=== PATIENT | male | born 1970 | race Caucasian/White ===

== ENCOUNTER 2019-09-16 05:47 | Inpatient (IN) | payer BC ==
[~2019-09-16] VITALS: Ht 182.9 cm; Wt 86.2 kg
--- NOTE | 2019-09-16 11:10 | NUR ---
pt arrived to room 107 at 1100 with . alert and oriented. slurred speech noticeable. bedside swallow eval to be done by 1115 by this RN. unsteady gait. in bathroom to urinate at this time.
--- NOTE | 2019-09-16 12:03 | EKG ---
[facility] [address] [facility] [place], [place] [address] Signed Sinus tachycardia Possible Left atrial enlargement Right bundle branch block Abnormal ECG No previous ECGs available Confirmed by LAI CONROY DO ([id number]) on 09/16/2019 12:03:12 PM Electronically Signed By: LAI CONROY DO 09/16/19 1203 PATIENT NAME: SUMEET AYERS Electrocardiogram DATE OF : 68 PHYSICIAN: LAI CONROY DO REPORT #: [id number] REPORT IS CONFIDENTIAL AND NOT TO BE RELEASED WITHOUT AUTHORIZATION
[2019-09-16] MEDS ORDERED: TUMS200 MG PO (12:29)
--- NOTE | 2019-09-16 12:29 | NUR ---
MED REC COMPLETE
--- NOTE | 2019-09-16 14:06 | NUR ---
COMPLETED HOURLY ROUNDING ON PATIENT. AT BEDSIDE. WONDERED ABOUT WHEN HOSPITALIST WOULD ROUND AGAIN. HAD WORK RELEASE FORMS NEEDED TO BE FILLED OUT BY HOSPITALIST. GAVE PAPERWORK TO HOSPITALIST.
--- NOTE | 2019-09-16 14:14 | NUR ---
AMBULATING IN HALLS WITH PHYSICAL THERAPY AT THIS TIME.
--- NOTE | 2019-09-16 17:53 | NUR ---
ED ADMIT TODAY. NEW RIGHT SIDED WEAKNESS AND SLURRED SPEECH. TELE 2. ECHOCARDIOGRAM TODAY. SALINE LOCKED. STANDBY ASSIST TO BATHROOM. PT/OT/ST. BEDSIDE SWALLOW EVAL PASSED, BUT DID ASPIRATE WATER SLIGHTLY WHEN CHIN NOT TUCKED. WATCH CLOSELY AND FLEECER WITH SWALLOW PERCAUTIONS. , BARBARA, LIKELY STAYING THE NIGHT.
--- NOTE | 2019-09-16 18:13 | NUR ---
PATIENT IN BED WATCHING TV. FRESH WATER GIVEN. CALL LIGHT IN REACH. NO FURTHER NEEDS AT THIS TIME.
--- NOTE | 2019-09-16 19:05 | NUR ---
REPORT RECEIVED FROM GARCIA GILL. pt RESTING IN BED WITH EYES CLOSED. BREATHING UNLABORED. HR 70 ON TELE 2.
--- NOTE | 2019-09-16 19:48 | NUR ---
Patient is walking in the [address] with Family
--- NOTE | 2019-09-16 20:09 | NUR ---
Yohana walked one lap in med/surg with assisstance from his , i accompanied them on there walk.
--- NOTE | 2019-09-16 20:10 | NUR ---
ROUNDED CHARGE. PATIENT IS UP AMBULATING IN THE HALLWWAY. NO NEEDS NOTED. CALL LIGHT IN REACH.
--- NOTE | 2019-09-16 20:11 | NUR ---
CALL LIGHT ANSWERED. pt C/O FEELING ANXIOUS "CAN'T SIT STILL". AMBULATING IN HALLWAY SBA, MAREN CHRISTINE, GAIT UNSTEADY. NIO NICOTINE MEDICATIONS ORDERED. pt EDUCATION PROVIDED.
--- NOTE | 2019-09-16 21:16 | NUR ---
pt ASSESSMENT COMPLETE. pt EDUCATION PROVIDED REGARDING STROKE. QUESTIONS ANSWERED. DISCUSSED THAT MD WILL ROUND IN MORNING AND WILL GIVE RESULTS FROM CT. NICOTINE PATCH AND LOSANGE ADMINISTERED. pt APPEARS RELAXED. NEURO CHECK COMPLETE. GENERALIZED WEAKNESS, RIGHT FACIAL DROOP, SLURRED SPEECH NOTED. pt DENIES ADDITIONAL NEEDS.
--- NOTE | 2019-09-16 21:40 | NUR ---
MD IN pt ROOM PROVIDED pt EDUCATION TO AND pt REGARDING CT RESULTS, PLAN OF CARE. QUESTIONS ANSWERED. pt RESTING IN BED.
--- NOTE | 2019-09-16 22:24 | NUR ---
PATIENT GIVEN PRN LOZENGE PER ORDER. PATIENT IS UP AMBULATING IN HALLWAY AT THIS TIME. WITH .
--- NOTE | 2019-09-16 23:33 | NUR ---
CHECKED ON pt. RESTING IN BED WITH EYES CLOSED. BREATHING UNLABORED. HR 72 ON TELE 2.
--- NOTE | 2019-09-17 01:58 | NUR ---
CALL LIGHT ANSWERED. SBA TO RESTROOM. GAIT UNSTEADY. ASSESSMENT COMPLETE. NEURO CHECK UNCHANGED, GENERALIZED WEAKNESS THROUGHOUT. VSS. CALL LIGHT IN REACH. LIGHTS OFF IN ROOM.
--- NOTE | 2019-09-17 04:43 | NUR ---
pt RESTING IN BED WITH EYES CLOSED. BREATHING EQUAL AND UNLABORED. HR 88 ON TELE 2.
--- NOTE | 2019-09-17 05:27 | NUR ---
pt RESTED WELL THIS SHIFT. NEURO CHECK UNCHANGED, WEAKNESS BILATERALLY, RIGHT SIDE FACIAL DROOP, SLURRED SPEECH. TELE 2. AMBUATING IN HALLWAY SBA. NIO NICOTINE PATCH PLACED. USING CALL LIGHT APPROPRIATELY.
--- NOTE | 2019-09-17 06:42 | NUR ---
PRN NICOTINE LOSANGE PROVIDED. pt RESTING IN BED. VSS. NEURO CHECK UNCHANGED. DENIES TOILETING NEEDS. COFFEE PROVIDED. CALL LIGHT IN REACH. IN ROOM.
--- NOTE | 2019-09-17 07:40 | NUR ---
PT REQUESTED TO GO FOR A WALK. AMB HALLWAY WITH SBA FROM , APPEARS TO BE SULLY WELL.
--- NOTE | 2019-09-17 07:45 | NUR ---
Spoke with Ras and his , Jess. Pt is anxious to go home. Speach is slurred and facial droop noticable. Updated Dr. Herrera will see him today. Pt works in [employer] at [employer]. LIves in an upstairs apartment, with 16 steps to entry. Pt. interested in OP therapy. Not sure if he would go to an IP therapy, which is more than likely not an option as he seems to have full strength in his legs.
--- NOTE | 2019-09-17 08:30 | NUR ---
Pt discussed in AM huddle with Dr. Herrera. May dc to home today with . Pt does not have a PCP. I spoke with and she would like Dr. Gresham or Dr. Gil. I called the office and they requested a face sheet, face sheet faxed.
--- NOTE | 2019-09-17 08:54 | NUR ---
PT SITTING UP RECLINER, AT BEDSIDE. PT REPORTS HE ATE BREAKFAST AND SULLY WELL. DENIES PAIN. NEURO ASSESSMENT COMPLETED. RIGHT COVER REMOVER AND STRENGTH SLIGHTLY WEAKER THAN LEFT BUT PT OVERALL FAIRLY STRONG. RIGHT FACIAL DROOP NOTED. SLURRED SPEECH BUT COMPREHENSIBLE. ALERT AND ORIENTED TO ALL. MEDICATED WITH NICOTINE LOZENGE PER PT REQUEST. TELE [address], SR. SPEECH THERAPIST IN AT THIS TIME. CALL LIGHT WITHIN REACH.
--- NOTE | 2019-09-17 10:49 | NUR ---
PATIENT SITTING IN CHAIR. FRESH WATER GIVEN. CALL LIGHT IN REACH. NO FURTHER NEEDS AT THIS TIME.
--- NOTE | 2019-09-17 11:20 | NUR ---
PT SITTING UP IN RECLINER VISITING WITH . NEURO ASSESSMENT UNCHANGED. PT AND DENY NEEDS OR CONCERNS AT THIS TIME. CALL LIGHT WITHIN REACH.
--- NOTE | 2019-09-17 12:55 | NUR ---
DISCUSSED WITH PT HIS DIAGNOSIS, PT STATES HE KNOWS HE HAD A STROKE AND HE IS NOT SURE WHAT TYPE OF STROKE HE HAD. WE DISCUSSED THE LENGTHS OF TIME IT MAY TAKE TO RECUPERATE STATING THAT IT IT VARIES ON HOW LONG IT TAKES TO RECUPERATE. PT STATES UNDERSTANDING OF THIS. PT ALSO WANTING TO GET BACK TO WORK AND EXPLAINED TO HIM THAT IT IS GOING TO BE A LITTLE BIT BEFORE HE WILL BE ABLE TO RETURN TO WORK. HE STATED UNDERSTANDING OF THIS, BUT WOULD STILL LIKE TO GO HOME. I VOICED A CONCERN FOR HIM TO DR CONROY REGARDING PT SAFELY GOING HOME.
--- NOTE | 2019-09-17 13:55 | NUR ---
PT SITTING UP IN RECLINER APPEARS TO BE SLEEPING. EYES CLOSED, RESP EVEN AND UNLABORED. AND VISITOR AT BEDSIDE. CALL LIGHT WITHIN REACH.
--- NOTE | 2019-09-17 14:12 | NUR ---
PT AMB HALLWAY WITH , APPEARS TO BE SULLY WELL.
--- NOTE | 2019-09-17 14:41 | NUR ---
PATIENT IN BED WATCHING TV, FAMILY AND DOCTOR IN ROOM. CALL LIGHT IN REACH. NO FURTHER NEEDS AT THIS TIME.
--- NOTE | 2019-09-17 15:09 | NUR ---
Chart sent to OP therapy. Face sheet, order, ER note, H&P, PT/OT/ST evals and notes.
[2019-09-17] MEDS ORDERED: NICORETTE4 M2 BUCCAL (15:11)
[2019-09-17] MEDS ORDERED: NICOTINE PATCH1 EAC1 TD (15:11)
[2019-09-17] MEDS ORDERED: LIPITOR80 MG PO (15:11)
[2019-09-17] MEDS ORDERED: LISINOPRIL10 MG PO (15:12)
[2019-09-17] MEDS ORDERED: ASPIRIN81 MG PO (15:12)
== END 2019-09-17 15:53 | disposition home or self-care (01) | DRG 65 ==
LOC: ED 05:47 → MS 05:49
PROVIDERS: ADMIT Student in an Organized Health Care Education/Training Program
DX: I63.9 Cerebral infarction, unspecified (principal); G81.91 Hemiplegia, unspecified affecting right dominant side; R29.810 Facial weakness; R47.01 Aphasia; R29.700 NIHSS score 0; R47.81 Slurred speech; E78.5 Hyperlipidemia, unspecified; I10 Essential (primary) hypertension; F17.200 Nicotine dependence, unspecified, uncomplicated
CPT/HCPCS: 36415; 70450; 70496; 70498; 71045; 80048; 80053; 80061; 83036; 83735; 84484; 85025; 85610; 85730; 92522; 92610; 93005; 93010; 93306; 97112; 97161; 97166; 99285-25; 99406; Q9967

== ENCOUNTER 2023-02-23 06:29 | Day surgery (SDC) | payer BC ==
[~2023-02-23] VITALS: Ht 182.9 cm; Wt 86.0 kg
[~2023-02-23 06:29] MED LIST: ALLERGY RELIEF10 M1 PO; ASPIRIN81 MG PO; LIPITOR80 MG PO; LISINOPRIL10 MG PO; NICORETTE4 M2 BUCCAL; NICOTINE PATCH1 EAC1 TD; PEPCID20 MG PO; TUMS200 MG PO
[2023-02-23 06:46] VITALS: BP 127/88
[2023-02-23] MEDS ORDERED: OMEPRAZOLE20 MG PO (06:48)
--- NOTE | 2023-02-23 08:18 | NUR ---
02/23/23 0818 Corie Robertson PT TO PACU SLEEPING. DOES NOT RESPOND TO VERBAL COMMANDS.
[2023-02-23 09:18] VITALS: BP 101/57
--- NOTE | 2023-02-23 09:32 | NUR ---
LE 0915-PATIENT BACK TO ROOM FROM PACU ON . RECEIVED REPORT FROM JENI ZELAYA. PATIENT IS ASLEEP AND HARD TO WAKE UP. VSS. LE 0920-PATIENT IS STARTING WAKE UP. REPOSITIONS SELF IN BED. PATIENT TAKING SIPS OF WATER. LE 0900-PATIENT IS DROWSY. DENIES PAIN AND NAUSEA.
[2023-02-23 09:56] VITALS: BP 98/58
--- NOTE | 2023-02-23 10:00 | OR ---
[facility] [address], [place] [address] Signed DATE OF OPERATION: 02/23/2023 SURGEON: Nidhi Fox MD PREOPERATIVE DIAGNOSIS: Father with colonic polyp in his 80s. POSTOPERATIVE DIAGNOSES: 1. Multiple 3-7 mm polyps at 8 cm in rectum. 2. Small to moderate sized lipoma at 8 cm in rectum. 3. 3 mm polyps x2 at 70 cm in the left colon. 4. 4 mm polyp at 15 cm in the left colon. 5. Minimal sigmoid diverticulosis. 6. Minimal internal hemorrhoids. PROCEDURE: Colonoscopy with hot biopsy and snare polypectomy. ESTIMATED BLOOD LOSS: None. INDICATIONS: Ras is a 52-year-old gentleman, asked to see me for his initial colonoscopy. He has no lower GI complaints. He is quite confident that his father had a colonic polyp removed in his 80s rather than colon cancer. In the office, I gave him a pamphlet on colonoscopy. We had reviewed the nature of the test. There is risk including, but not limited to gas bloating, crampy abdominal pain, bleeding, perforation requiring surgery and missed diagnosis. We also reviewed the need for IV conscious sedation. He had expressed understanding and wished to proceed. PROCEDURE NOTE: Ras was taken into our endoscopy suite and placed in the left lateral decubitus position. He was given a total of 6 mg of Versed and 100 mcg of fentanyl to cover the case. A digital rectal exam was performed. He had good sphincter tone. No external hemorrhoids. No masses. His prostate is moderately enlarged and indurated. The adult colonoscope was introduced and advanced under direct visualization of the camera. It took a little extra sedation and abdominal compression in order to get the scope directly in the cecum itself. His prep was good. We could easily see the appendiceal orifice and the ileocecal valve. The scope was then slowly withdrawn. The above-mentioned polyps were removed with the help of hot biopsy forceps. We did use our Electronically Signed By: NIDHI FOX MD 02/23/23 1000 PATIENT NAME: EDWARRRAS OPERATIVE REPORT DATE OF : 68 REPORT #: [id number] PHYSICIAN: NIDHI FOX MD PCP: SHILOH ANDREW MD REPORT IS CONFIDENTIAL AND NOT TO BE RELEASED WITHOUT AUTHORIZATION [facility] [address], [place] [address] Signed snare for two polyps at 8 cm in the rectum and right next to that is a small to moderate sized lipoma as well. We saw just a few tiny diverticula in the sigmoid colon. They were quite unremarkable. Once in the rectum, the scope had been retroflexed and he does have minimal internal hemorrhoid columns. After this, the gas was suctioned out and the colonoscope removed. Ras tolerated the procedure quite well. RECOMMENDATIONS: I will see Ras back in my office in 7 to 14 days to review his results. He will likely be on the five year plan. MD EDGARD Escobar/DINESHL /[id number] cc: MD Nidhi Winter MD Copies: SHILOH ANDREW MD, ANDREW L MD ~ Electronically Signed By: NIDHI FOX MD 02/23/23 1000 PATIENT NAME: RAS AYERS OPERATIVE REPORT DATE OF : 68 REPORT #: [id number] PHYSICIAN: NIDHI FOX MD PCP: SHILOH ANDREW MD REPORT IS CONFIDENTIAL AND NOT TO BE RELEASED WITHOUT AUTHORIZATION
[2023-02-23 10:03] VITALS: BP 104/62
--- NOTE | 2023-02-23 10:34 | NUR ---
LE 0956-PATIENT IS READY TO GO HOME. BP IS LOW. PATIENT SITTING AT BEDSIDE. DENIES [place], LIGHTHEADEDNESS. PATIENT STANDS UP AND FEELS FINE. PATIENT WILL GET DRESSED WITH THE HELP OF HIS WIEF. LE 1003-BP STABLE. PATIENT TO BE DISCHARGED.
--- NOTE | 2023-02-23 10:36 | NUR ---
[place] 1010-PROVIDED DISCHARGE INSTRUCTIONS TO PATIENT AND . ALL QUESTIONS ANSWERED. PATIENT STATES HE FEELS FINE. RIDE PROVIDED TO FRONT OF HOSPITAL WHERE HIS WAS WAITING WITH THE CAR.
--- NOTE | 2023-02-23 12:54 | NUR ---
PT IN BED. ACCOMPANIED BY . BOTH DENIED ANY NEEDS. PRAYED.
--- NOTE | 2023-02-27 19:23 | PATH ---
[facility] [address] [place], [place] [address] Signed SPECIMEN(S): A POLYP AT 8 CM SPECIMEN(S): B DESCENDING/LEFT COLON POLYP AT 70 CM SPECIMEN(S): C POLYP AT 58 CM SPECIMEN SOURCE: A. POLYP AT 8 CM B. DESCENDING/LEFT COLON POLYP AT 70 CM C. POLYP AT 58 CM CLINICAL HISTORY: Pre: Initial screening; family history of polyps. Post: Polyps x 3. FINAL PATHOLOGIC DIAGNOSIS: A. Colon, polyp at 8 cm, biopsy: - Portions of tubular adenoma; (3 of 5 pieces, including largest piece). - Base of largest polyp is free of adenomatous change. - Hyperplastic polyp; 1 of 5 pieces. - Unremarkable colonic mucosa; 2 of 5 pieces. B. Descending/left colon polyp at 70 cm, biopsy: - Colonic mucosa with superficial goblet cell hyperplasia. - One piece with a small lamina propria lymphoid aggregate. - Multiple levels are examined with no dysplasia or malignancy identified. C. Colon, polyp at 58 cm, biopsy: - Hyperplastic polyp. - Negative for dysplasia and malignancy. SDL MICROSCOPIC EXAMINATION: Histologic sections of all submitted blocks are examined by light microscopy. These findings, together with the gross examination, support the pathologic diagnosis. SDL GROSS DESCRIPTION: A. The specimen, labeled and designated "[place], polyp at 8 cm," is received in formalin and consists of 5 fragments of white-lawrence soft tissue (0.2-0.3 cm in greatest dimension) and a polyp of pink-lawrence soft tissue (0.7 x 0.6 x 0.5 cm). The resection margin is inked blue, and the tissue is bisected to reveal red-pink soft cut surface. The specimen is submitted entirely in cassette (A1). B. The specimen, labeled and designated "[place], descending/left colon polyp at PATIENT NAME: SUMEET AYERS PATHOLOGY DATE OF : 68 REPORT #: [id number] PHYSICIAN: MORGAN PATHOLOGY PCP: SHILOH ANDREW MD REPORT IS CONFIDENTIAL AND NOT TO BE RELEASED WITHOUT AUTHORIZATION [facility] [address] [place], [place] [address] Signed 70 cm," is received in formalin and consists of two lawrence soft tissue fragments, ranging from 0.3-0.5 cm. Entirely submitted in (B1). C. The specimen, labeled and designated "[place], polyp at 58 cm," is received in formalin and consists of one lawrence soft tissue fragment, 0.3 cm. Entirely submitted in (C1). VB (under the direct supervision of a pathologist) The Gross Description was prepared using a voice recognition system. The report was reviewed for accuracy; however, sound-alike word errors, addition and/or deletions may occur. If there are any questions about this report, please contact Client Services. PERFORMING LABORATORY: Technical component was performed by [facility], [address] [place] [id number] (CLIA# [id number]) Professional interpretation was performed by [facility], [address] [place] [id number] (CLIA#: [id number]). . Diagnostician: Olga Ivory MD Pathologist Electronically Signed 02/27/2023 Copies: ~ PATIENT NAME: SUMEET AYERS PATHOLOGY DATE OF : 68 REPORT #: [id number] PHYSICIAN: MORGAN PATHOLOGY PCP: HSILOH ANDREW MD REPORT IS CONFIDENTIAL AND NOT TO BE RELEASED WITHOUT AUTHORIZATION
== END 2023-02-23 10:10 | disposition home or self-care (01) ==
LOC: DS 06:29 → OPS 06:29 → DS 07:30 → OPS 10:10
PROVIDERS: ATTEND Colon & Rectal Surgery
PROC: 0DBE8ZZ Excision of Large Intestine, Via Natural or Artificial Opening Endoscopic (ICD-10-PCS; 2023-02-23)
PROC: 0DBP8ZZ Excision of Rectum, Via Natural or Artificial Opening Endoscopic (ICD-10-PCS; 2023-02-23)
PROC: 0DBG8ZZ Excision of Left Large Intestine, Via Natural or Artificial Opening Endoscopic (ICD-10-PCS; principal; 2023-02-23 07:30)
DX: Z12.11 Encounter for screening for malignant neoplasm of colon (principal); K57.30 Diverticulosis of large intestine without perforation or abscess without bleeding; D12.8 Benign neoplasm of rectum; K63.5 Polyp of colon; D17.5 Benign lipomatous neoplasm of intra-abdominal organs; K64.8 Other hemorrhoids; Z80.0 Family history of malignant neoplasm of digestive organs; Z83.71 Family history of colonic polyps; I10 Essential (primary) hypertension; E78.5 Hyperlipidemia, unspecified; F17.210 Nicotine dependence, cigarettes, uncomplicated; Z79.82 Long term (current) use of aspirin; Z79.899 Other long term (current) drug therapy
CPT/HCPCS: 99153; G0500; J2250; J3010